=== PATIENT | female | born 1985 | race Two or more races ===

== ENCOUNTER → 2024-10-19 | Outpatient (CLI) | payer OTHER | LOC: M WHC 09:25 | PROVIDERS: ATTEND Advanced Practice Midwife | DX: O09.299 Supervision of pregnancy with other poor reproductive or obstetric history, unspecified trimester (principal) ==

== ENCOUNTER → 2024-11-10 | Outpatient (CLI) | payer OTHER | LOC: M WHC 14:34 → EDUNIT# 15:15 | PROVIDERS: ATTEND Advanced Practice Midwife | DX: Z36.2 Encounter for other antenatal screening follow-up (principal); Z3A.00 Weeks of gestation of pregnancy not specified ==

== ENCOUNTER → 2024-11-17 | Outpatient (REF) | payer OTHER ==
[~2024-11-17] MED LIST: ACET-897 PO; FERR325T3 PO; PRENTAB9 PO; TUMSCHW16 PO
== END ==
LOC: M PLALAB 15:45
PROVIDERS: ATTEND Advanced Practice Midwife
DX: Z34.93 Encounter for supervision of normal pregnancy, unspecified, third trimester (principal)

== ENCOUNTER 2024-12-05 17:37 | Inpatient (IN) | payer OTHER ==
[~2024-12-05] VITALS: Ht 175.3 cm; Wt 95.3 kg
[2024-12-05] VITALS (8 sets, daily range): BP systolic 111–144; BP diastolic 57–79
[2024-12-05] MEDS ORDERED: HOME MED LIST COMPLETE! XX SCH (17:55)
[2024-12-05] MEDS ORDERED: OXYTOCIN DRIP 30 UNITS in IV 1 EA IV PRN (19:15)
[2024-12-05] MEDS ORDERED: LIDOCAINE 1% MDV 20 ML VIAL INFIL PRN (19:15)
[2024-12-05 19:23] LABS: PLATELET COUNT, AUTOMATED 305 10^3/uL (150-450)
[2024-12-05] MEDS: CALCIUM CARBONATE 500 MG CHEW U/D PO ONE (19:55)
[2024-12-05] MEDS: OXYTOCIN DRIP 30 UNITS in IV 1 EA IV SCH (21:45)
[2024-12-05] MEDS: LR 1,000 ML IV SCH (21:46)
[2024-12-05 22:59] LABS: HIV 1&2 SCREEN NEGATIVE (NEGATIVE)
[2024-12-06] VITALS (58 sets, daily range): BP systolic 100–151; BP diastolic 52–97
[2024-12-06] MEDS: FAMOTIDINE 20 MG TAB PO ONE ×2 (00:10→21:11)
[2024-12-06] MEDS: CALCIUM CARBONATE 500 MG CHEW U/D PO ONE (01:05)
[2024-12-06] MEDS ORDERED: LR 500 ML IV PRN (05:20)
[2024-12-06] MEDS ORDERED: NALOXONE INJ 0.4 MG/1 ML VIAL IV PRN (05:20)
[2024-12-06] MEDS ORDERED: EPIDURAL/PCA KEYS XX PRN (05:20)
[2024-12-06] MEDS ORDERED: diphenhydrAMINE 50 MG/ML VIAL IV PRN (05:20)
[2024-12-06] MEDS ORDERED: ONDANSETRON 4MG 2ML VIAL IV PRN (05:20)
[2024-12-06] MEDS: FENTANYL/ROPIVACAINE/NACL BAG 100 ML EPIDURAL SCH (05:53)
[2024-12-06] MEDS ORDERED: CARBOPROST TROMETHAMINE 250 MCG/ML AMP IM PRN (22:25)
[2024-12-06] MEDS: LACTATED RINGER'S 1000 ML IV STA (22:25)
[2024-12-06] MEDS: ceFAZolin SODIUM 2 GM in DEXTROSE 5% (D5W) ADV/MINI-BAG 50 ML IV ONE (22:25)
[2024-12-06] MEDS ORDERED: OXYTOCIN INJ 10UNITS/ML 1ML VIAL IM PRN (22:25)
[2024-12-06] MEDS ORDERED: ONDANSETRON 4MG 2ML VIAL As Ordered ONE (22:48)
[2024-12-06] MEDS ORDERED: KETOROLAC 30 MG/ML 1 ML VIAL As Ordered ONE (22:48)
[2024-12-06] MEDS ORDERED: MORPHINE PRES-FREE INJ 10 MG/10 ML VIAL As Ordered ONE (22:48)
[2024-12-06] MEDS: AZITHROMYCIN INJ 500 MG, VIAL MATE ADAPTER 1 EACH in NS 250 ML IV ONE (22:48)
[2024-12-06] MEDS ORDERED: LIDOCAINE 2% W/EPINEPHrine 20 ML VIAL **PRES FREE As Ordered ONE (22:50)
[2024-12-06] MEDS ORDERED: OXYTOCIN 30UNITS IN 0.9% NaCl 500ML IV BAG As Ordered ONE (22:51)
[2024-12-06] MEDS ORDERED: ACETAMINOPHEN 1000MG/100ML IV BAG As Ordered ONE (22:51)
[2024-12-06] MEDS: BICITRA 30 ML SOLN UDC PO ONE (22:55)
[2024-12-06] MEDS ORDERED: SIMETHICONE 80MG CHEW TAB PO PRN (23:05)
[2024-12-06] MEDS ORDERED: MOM 30 ML SUSPENSION UDC PO PRN (23:05)
[2024-12-06] MEDS ORDERED: RHOGAM 300MCG (1500IU) INJ IM SCH (23:05)
[2024-12-06] MEDS ORDERED: PHENYLephrine 500MCG 5ML (100MCG/ML) SYRINGE As Ordered ONE (23:17)
[2024-12-06 23:43] LABS: CORD GAS ABE A -1.1; CORD GAS ABE V -1.6; CORD GAS HCO3 A 26.0 MMOL/L; CORD GAS HCO3 V 22.6 MMOL/L; CORD GAS O2 SAT A 52.6 %; CORD GAS O2 SAT V 51.5 %; CORD GAS PCO2 A 52.1 mmHg; CORD GAS PCO2 V 37.4 mmHg; CORD GAS PH A 7.316 UNITS; CORD GAS PH V 7.4 UNITS; CORD GAS PO2 A 22.9 mmHg; CORD GAS PO2 V 20.4 mmHg; CORD GAS SBC A 22.3 MMOL/L; CORD GAS SBC V 21.9 MMOL/L; CORD GAS TCO2 A 27.6 MMOL/L; CORD GAS TCO2 V 23.8 MMOL/L
[2024-12-07] VITALS (10 sets, daily range): BP systolic 110–130; BP diastolic 54–89; TEMP 97.3; O2SAT 96–99
[2024-12-07] MEDS ORDERED: ONDANSETRON 4MG 2ML VIAL IV PRN (00:15)
[2024-12-07] MEDS: METHYLERGONOVINE MALEATE 0.2 MG/ML 1 ML VIAL IM PRN (00:23)
[2024-12-07] MEDS: TRANEXAMIC ACID INJection 1,000 MG in NS 100 ML IV ONE (00:23)
[2024-12-07] MEDS: ACETAMINOPHEN 500 MG TAB PO PRN (03:50)
[2024-12-07] MEDS: KETOROLAC 30 MG/ML 1 ML VIAL IV SCH (05:19)
[2024-12-07 07:52] LABS: PLATELET COUNT, AUTOMATED 291 10^3/uL (150-450)
[2024-12-07] MEDS: LR 500 ML IV ONE (09:43)
[2024-12-07] MEDS: DOCUSATE SODIUM 100 MG CAPSULE PO SCH (11:01)
[2024-12-07] MEDS: PRENATAL VITAMINS CHEWABLE TABLET PO SCH (11:01)
[2024-12-08] MEDS: IBUPROFEN 800 MG TAB PO SCH (01:37)
[2024-12-08 02:00] VITALS: BP 103/62; O2SAT 96
[2024-12-08 06:00] VITALS: BP 105/55; O2SAT 98
[2024-12-08] MEDS: MEASLES,MUMPS,RUBELLA VACCINE INJ (MMR-II) SC.IMMUN ONE (09:00)
[2024-12-08 10:50] VITALS: BP 119/68; O2SAT 97
[2024-12-08 14:50] VITALS: BP 126/61; O2SAT 96
[2024-12-08 18:48] VITALS: BP 133/73; O2SAT 97
[2024-12-09 05:30] VITALS: BP 118/72; O2SAT 96
[2024-12-09] MEDS ORDERED: OXYC-517 PO (10:10)
[2024-12-09] MEDS ORDERED: IBUP80TA PO (10:10)
[2024-12-09] MEDS ORDERED: COLA100C5 PO (10:10)
[2024-12-09 14:20] VITALS: BP 130/39; O2SAT 96
== END 2024-12-09 16:17 | disposition home or self-care (01) | DRG 540 ==
LOC: M LDO 17:37 → M LDI 19:03 → M OBS 12-07 01:24
PROVIDERS: ADMIT Specialist; ATTEND Obstetrics & Gynecology
PROC: 10907ZC Drainage of Amniotic Fluid, Therapeutic from Products of Conception, Via Natural or Artificial Opening (ICD-10-PCS; 2024-12-06)
PROC: 10D00Z1 Extraction of Products of Conception, Low, Open Approach (ICD-10-PCS; principal; 2024-12-06 22:29)
DX: O34.211 Maternal care for low transverse scar from previous cesarean delivery (principal); O66.41 Failed attempted vaginal birth after previous cesarean delivery; Z3A.38 38 weeks gestation of pregnancy; Z88.5 Allergy status to narcotic agent; Z37.0 Single live birth; O62.0 Primary inadequate contractions